=== PATIENT | male | born 1980 | race African-American/Black ===

== ENCOUNTER 2016-07-04 13:56 | Emergency (ER) | payer MEDICAID ==
[~2016-07-04] VITALS: Ht 177.8 cm; Wt 116.0 kg
[~2016-07-04 13:56] MED LIST: CLONIDINE0.1 MG PO
[2016-07-04 16:03] LABS: INFLUENZA A NONE DETECTED (NONE DETECT); INFLUENZA B NONE DETECTED (NONE DETECT)
[2016-07-04] MEDS ORDERED: AMOXICILLIN500 MG PO (16:36)
[2016-07-04 16:40] VITALS: BP 141/84
== END 2016-07-04 16:40 | disposition home or self-care (01) | DRG 153 ==
LOC: ED 13:56
PROVIDERS: Emergency Medicine
DX: J02.0 Streptococcal pharyngitis (principal); F17.210 Nicotine dependence, cigarettes, uncomplicated; R05 Cough

== ENCOUNTER 2016-09-08 15:06 | Emergency (ER) | payer OTHER ==
[~2016-09-08] VITALS: Ht 177.8 cm; Wt 127.0 kg
[~2016-09-08 15:06] MED LIST changes: +AMOXICILLIN500 MG PO
[2016-09-08 15:27] LABS: HEMATOCRIT 38.5 % (39.0-50.0); HEMOGLOBIN 12.8 g/dl (14.0-18.0); IMMATURE GRANULOCYTES 0.3 % (0.0-1.0); MEAN CORPUSCULAR HGB 30.3 pG CALC (26.0-32.0); MEAN CORPUSCULAR HGB CONC 33.2 g/L CALC (32.0-36.0); NEUT# 8.28 thou/uL (1.82-7.42); RED BLOOD COUNT 4.23 mill/uL (4.70-6.10); RED CELL DISTRI WIDTH 14.3 % (11.5-15.5)
[2016-09-08 15:51] LABS: ALBUMIN 4.7 g/dL (3.2-5.0); ALKALINE PHOSPHATASE 64 u/l (38-126); ANION GAP 15 (6-22 (CALC)); BILIRUBIN, TOTAL 0.3 mg/dL (0.0-1.4); BUN 9 mg/dL (9-20); BUN/CREATININE RATIO 9 (12-20 (CALC)); CALCIUM 9.2 mg/dL (8.4-10.2); CARBON DIOXIDE 24 mmol/l (22-30); CHLORIDE 104 mmol/l (95-108); CREATININE 1.1 mg/dL (0.7-1.3); GFR > 60 ML/MIN (>=60 (CALC)); GFR FOR AFR.AMER. > 60 ML/MIN (>=60 (CALC)); GLUCOSE 108 mg/dL (75-110); POTASSIUM 3.8 mmol/l (3.5-5.1); SGOT/AST 50 u/l (17-59); SGPT/ALT 48 u/l (21-72); SODIUM 140 mmol/l (137-146); TOTAL PROTEIN 7.6 g/dL (6.3-8.2)
[2016-09-08] MEDS ORDERED: BACTRIM DS1 TAB PO (15:51)
[2016-09-08] MEDS ORDERED: AMLODIPINE BESYL5 MG PO (15:51)
[2016-09-08 16:02] LABS: MYOGLOBIN 24 ng/mL (0 - 121)
[2016-09-08 16:19] VITALS: BP 159/99
== END 2016-09-08 16:30 | disposition home or self-care (01) | DRG 305 ==
LOC: ED 15:06
PROVIDERS: Emergency Medicine
DX: I10 Essential (primary) hypertension (principal); F17.200 Nicotine dependence, unspecified, uncomplicated; R94.31 Abnormal electrocardiogram [ECG] [EKG]; J02.9 Acute pharyngitis, unspecified